=== PATIENT | female | born 1975 | race Caucasian/White ===

== ENCOUNTER 2022-10-27 10:28 | Outpatient (OUT) | payer BC, SELFPAY ==
[2022-10-27 11:45] LABS: Chol HDL Ratio 4.3; Cholesterol 230 mg/dL (<=200); Glucose 116 mg/dL (74-106); HDL Cholesterol 54 mg/dL (40-60); Triglycerides 245 mg/dL (<=150)
== END 2022-10-27 10:29 | disposition home or self-care (01) ==
PROVIDERS: PCP Family Medicine; Visit Provider Family Medicine
DX: Z00.00 Encounter for general adult medical examination without abnormal findings (principal)
CPT/HCPCS: 36415; 80061; 82947

== ENCOUNTER 2023-05-18 14:49 | Outpatient (OUT) | payer BC, SELFPAY ==
[2023-05-18 15:19] LABS: Basophils Absolute Auto 0.1 10^3/uL (0.0-0.1); Basophils Percent Auto 0.6 % (0.2-2.0); Eosinophils Absolute Auto 0.3 10^3/uL (0.0-0.7); Eosinophils Percent Auto 3.2 % (0.9-7.0); Hematocrit 45.4 % (36.0-48.0); Hemoglobin 14.8 g/dL (12.0-16.0); Immature Granulocytes Abs Auto 0.03 10^3/uL (0.00-0.03); Immature Granulocytes Pct Auto 0.3 % (0.0-0.5); Lymphocytes Absolute Auto 3.4 10^3/uL (1.2-3.8); Lymphocytes Percent Auto 31.8 % (20.5-60.0); Mean Corpuscular HGB Conc 32.6 g/dL (29.9-35.2); Mean Corpuscular Hemoglobin 29.3 pg (26.7-34.0); Mean Corpuscular Volume 89.9 fL (81.0-99.0); Mean Platelet Volume 8.8 fL (9.5-13.5); Monocytes Absolute Auto 0.5 10^3/uL (0.3-0.8); Monocytes Percent Auto 4.9 % (1.7-12.0); Neutrophils Absolute Auto 6.4 10^3/uL (1.4-6.5); Neutrophils Percent Auto 59.2 % (43.0-75.0); Platelet Count 319 10^3/uL (150-450); Red Blood Count 5.05 10^6/uL (4.20-5.40); Red Cell Distribution Width 12.8 % (11.0-15.0); White Blood Count 10.7 10^3/uL (4.0-11.0)
[2023-05-18 15:30] LABS: Anion Gap 13.3; BUN Creatinine Ratio 19.5; Carbon Dioxide 25.2 mmol/L (21.0-32.0); Chloride 105 mmol/L (98-107); Estimated GFR (African America >60 (>=60); Estimated GFR (Non-African Ame >60 (>=60); Glucose 97 mg/dL (74-106); Potassium 4.5 mmol/L (3.5-5.1); Sodium 139 mmol/L (136-145)
[2023-05-18 15:46] LABS: Erythrocyte Sedimentation Rate 77 mm/hr (<=20)
== END 2023-05-18 14:50 | disposition home or self-care (01) ==
LOC: LAB 14:50
PROVIDERS: PCP Family Medicine; Visit Provider Family Medicine
DX: R35.0 Frequency of micturition (principal); R10.9 Unspecified abdominal pain; L08.9 Local infection of the skin and subcutaneous tissue, unspecified
CPT/HCPCS: 36415; 80048; 85025; 85652

== ENCOUNTER 2023-05-25 14:57 | Outpatient (OUT) | payer BC, SELFPAY ==
--- NOTE | 2023-05-25 15:00 | CT_ITS ---
[address] [address] Patient Name: BUDDY HURLEY MRN: [id number] date: 1975 Sex: F Assigned Patient Location: CT Current Patient Location: CT Accession/Order Number: [id number] Exam Date: 05/25/2023 15:14 Report Date: 05/25/2023 15:39 At the request of: GIUSEPPE JOEL Procedure: CT abdomen pelvis wo con EXAMINATION: CT abdomen pelvis wo con HISTORY: urinary frequency R35.0, Bilateral Flank Pain R10.9 COMPARISON: No relevant comparison available. TECHNIQUE: Axial, Coronal, and Sagittal images were created without IV contrast. Dose reduction techniques were achieved by using automated exposure control and/or adjustment of mA and/or kV according to patient size and/or use of iterative reconstruction technique. FINDINGS: LUNG BASES: No visible pulmonary or pleural disease. LIVER: Diffuse hypoattenuation the liver consistent with hepatic steatosis BILIARY: No dilatation or calcification. PANCREAS: No lesion, fluid collection, ductal dilatation, or atrophy. SPLEEN: No enlargement or focal lesion. ADRENALS: No mass or enlargement. KIDNEYS: No mass, obstruction, or calcification. BOWEL/MESENTERY: No visible mass, obstruction, or bowel wall thickening. Normal appendix AORTA/VASCULAR: No aneurysm or dissection. RETROPERITONEUM: No mass or adenopathy. LYMPH NODES: No adenopathy. URINARY BLADDER: No visible focal wall thickening, lesion, or calculus. PELVIC ORGANS: Hysterectomy ABDOMINAL WALL: No mass or hernia. BONES: No bony lesion or fracture. OTHER: Negative. CT/CT abdomen pelvis wo con IMPRESSION: No acute intraperitoneal abnormality Diffuse hepatic steatosis No obstructive uropathy Electronically authenticated by: MIGUEL LADD Date: 05/25/2023 15:39
== END 2023-05-25 14:58 | disposition home or self-care (01) ==
LOC: CT 14:57
PROVIDERS: PCP Family Medicine; Visit Provider Family Medicine
DX: R35.0 Frequency of micturition (principal); R10.9 Unspecified abdominal pain; Z87.442 Personal history of urinary calculi
CPT/HCPCS: 74176

== ENCOUNTER 2025-01-12 13:21 | Outpatient (OUT) | payer BC, SELFPAY ==
--- NOTE | 2025-01-12 13:47 | MM_ITS ---
Patient Name: BUDDY HURLEY MR#: [id number] : 1975 Exam Date: 01/12/2025 Ordering Doctor: DR GIUSEPPE JOEL M.D. RADIOLOGY REPORT PROCEDURE: MM TOMOSYNTHESIS SCREENING BI COMPARISON: None. INDICATIONS: Screening Calculator Name NCI Breast Cancer Risk Assessment Tool 5 Year Breast Cancer Risk 0.60% Lifetime Breast Cancer Risk 6.80% Personal Breast Cancer No Personal Ovarian Cancer No Treatments None Family Cancers None LOCATION: [facility] BREAST COMPOSITION: There are scattered areas of fibroglandular density. FINDINGS: RIGHT BREAST: Benign-appearing calcifications are present. There is a 6 mm probably asymmetry of the middle depth of the right breast laterally 5.5 cm from the nipple. There is an 8 mm focal asymmetry in the anterior depth of the right breast 2.1 cm from the nipple. There is a 1.2 cm focal asymmetry in the posterior depth of the right breast medially 9 cm from the nipple. LEFT BREAST: Benign-appearing calcifications are present. There is a 9 mm focal asymmetry in the middle back of the left breast centrally 7 cm from the. There is a 9 mm focal asymmetry junction of the anterior and middle vessel left breast 4 cm from the nipple centrally. DIAGNOSTIC CATEGORY 0--INCOMPLETE: NEED ADDITIONAL IMAGING EVALUATION. RECOMMENDATIONS: ADDITIONAL MAMMOGRAPHIC VIEWS REQUIRED: Bilateral BREAST - spot compressed views of the bilateral breasts with ultrasound if necessary is recommended. Dictated by: Jaskaran Hernandez MD on 01/12/2025 at 17:17 Approved by: Jaskaran Hernandez MD on 01/12/2025 at 17:25
[2025-01-12 14:02] LABS: Hematocrit 43.5 % (36.0-48.0); Hemoglobin 14.7 g/dL (12.0-16.0); Immature Granulocytes Abs Auto 0.03 10^3/uL (0.00-0.03); Immature Granulocytes Pct Auto 0.3 % (0.0-0.5); Lymphocytes Absolute Auto 3.1 10^3/uL (1.2-3.8); Mean Corpuscular HGB Conc 33.8 g/dL (29.9-35.2); Mean Corpuscular Hemoglobin 29.8 pg (26.7-34.0); Mean Corpuscular Volume 88.1 fL (81.0-99.0); Platelet Count 361 10^3/uL (150-450); Red Blood Count 4.94 10^6/uL (4.20-5.40); White Blood Count 8.7 10^3/uL (4.0-11.0)
[2025-01-12 14:25] LABS: Alanine Aminotransferase 40 U/L (14-59); Albumin Globulin Ratio 1.0; Albumin Level 3.8 g/dL (3.4-5.0); Alkaline Phosphatase 82 U/L (46-116); Anion Gap 14.6; Aspartate Amino Transferase 22 U/L (15-37); Blood Urea Nitrogen 8.0 mg/dL (7.0-18.0); Calcium 9.0 mg/dL (8.5-10.1); Carbon Dioxide 27.5 mmol/L (21.0-32.0); Chloride 102 mmol/L (98-107); Estimated GFR (African America >60 (>=60 mL/min/1.73m^2); Estimated GFR (Non-African Ame >60 (>=60 mL/min/1.73m^2); Globulin 3.8 g/dL; Glucose 103 mg/dL (74-106); Potassium 4.1 mmol/L (3.5-5.1); Sodium 140 mmol/L (136-145); Total Protein 7.6 g/dL (6.4-8.2)
[2025-01-12 14:32] LABS: Magnesium 2.0 mg/dL (1.8-2.4); TSH W/ REFLEX FT4 0.899 uIU/mL (0.358-3.740)
[2025-01-12 15:08] LABS: Ferritin 164.0 ng/mL (8.0-252.0)
--- OUTSIDE RECORDS SUMMARY | 2025-01-12 19:23 | XMS_ITS | CCD ---
Author Organization [facility] Care Team Providers Care Radio Repairer Name Role Phone DR NED FAULKNER Admitting Unavailable LUCIE, DR MARINO Attending Unavailable MARYCRUZ, DR TIESHA Tucker Primary Care Unavailable JOEL, DR TIESHA Tucker Admitting Unavailable JOEL, DR TIESHA Tucker Attending Unavailable MARYCRUZ, DR TIESHA Tucker Consulting Unavailable MARYCRUZ, DR TIESHA Tucker Primary Care Unavailable Carl Becker Consulting Unavailable MARYCRUZ, DR TIESHA Tucker Admitting Unavailable MARYCRUZ, DR TIESHA Tucker Attending Unavailable MARYCRUZ, DR TIESHA Tucker Primary Care Unavailable RADHIKA, DR ANTONIO Yusuf Admitting Unavailabl e RADHIKA, DR ANTONIO Yusuf Attending Unavailabl e JOEL, DR TIESHA Tucker Primary Care Unavailable RADHIKA, DR ANTONIO Yusuf Consulting Unavailabl e LAVON, DR TU Queen Consulting Unavailable Tiesha Joel Unavailable Mirtha Doss Unavailable Tiesha Joel Attending Unavailable Tiesha Joel Admitting Unavailable NED FAULKNER Attending Unavailable Tiesha Joel MD Primary Care Provider Tiesha Joel MD Attending Provider Allergies Allergy Classification Reported Allergen(s) Allergy Type Date of Onset Reaction(s) Facility (1 source) Sulfonamides (Antibiotic) Drug allergy (disorder) 11-11-19 17 [facility] Repository (8 sources) Sulfacetamide Drug Allergy 12-28-19 25 nausea and chest pain [facility] (4 sources) Allergies Reconciled Propensity to adverse reactions 09-02-19 18 Unknown [facility] Other (4 sources) Substance with sulfonamide structure and antibacterial mechanism of action (substance) Drug allergy SULFA [facility] Other (1 source) Sulfacetamide Drug Allergy 03-19-20 23 [facility] Repository (3 sources) Sulfonamides (Antibiotic); Translations: [SULFA (SULFONAMIDE ANTIBIOTICS)] Drug allergy (disorder) 09-25-19 [facility] Repository Medications Current Medications Medication Drug Class(es) Dates Sig (Normalized) Sig (Original) Albuterol Sulfate 108 (90 Base) MCG/ACT (7 sources) take 2 puff(s) by inhalation every six hours as needed amoxicillin 875 mg / clavulanate 125 mg oral tablet (1 source) Penicillin-class Antibacterial Start: 04-29-2023 take 1 tablet by mouth every twelve hours Amoxicillin-Pot Clavulanate 875-125 MG 1 tablet Orally every 12 hrs for 7 days Apr, Active carvedilol 6.25 mg oral tablet (8 sources) alpha-Adrenergic Aly, beta-Adrenergic Aly Start: 12-27-2024 take 1 tablet by mouth twice daily at mealtime Carvedilol 6.25 mg tablet Active 6.25 MG PO Twice daily December 27, 2024 12:00am [employer] tablet with food Orally Twice a day; Note: Source Status: Taking; Qty: 180 Tablet; Provider: MACHADO NOT PROVIDED Complies with drug therapy take 1 tablet by yvette th every twelve hours Carvedilol 6.25 MG 1 tablet with food Orally Twice a day for 90 days Active losartan potassium 50 mg oral tablet (1 source) Angiotensin 2 Receptor Aly Start: 12-27-2024 take 1 tablet by mouth once daily Losartan 50 mg tablet Active 50 MG PO Daily December 27, 2024 12:00am Complies with drug therapy methylPREDNISolone 4 mg oral tablet (7 sources) Corticosteroid Start: 03-18-2019 SUMAtriptan 100 mg oral tablet (9 sources) Serotonin-1b and Serotonin-1d Receptor Agonist Start: 06-29-2023 Sumatriptan Succinate 100 mg tablet Active 0 .ROUTE .COMPLEX 9 June 29, 2023 10:07am TAKE 1 TABLET BY MOUTH NEEDED FOR MIGRAINE Complies with drug therapy Start: 06-29-2023 End: 06-29-2023 Sumatriptan Succinate 100 mg tablet Discontinued 100 MG PO June 29, 2023 12:00am June 29, 2023 10:07am SUMAtriptan Succ inate 100 MG TAKE 1 TABLET BY MOUTH NEEDED FOR MIGRAINE for 30 Active SUMAtriptan Succ inate Active Completed/Discontinued Medications Medication Drug Class(es) Dates Sig (Normalized) Sig (Original) 200 actuat albuterol 0.09 mg/actuat dry powder inhaler (1 source) beta2-Adrenergic Agonist Start: 12-27-2024 End: 12-27-2024 take 2 puff(s) by inhalation every six hours as needed cefdinir 300 mg oral capsule (4 sources) Cephalosporin Antibacterial Cefdinir 300 MG as directed Orally bid for 7 days Not-Taking/PRN codeine phosphate 2 mg/ml / guaiFENesin 20 mg/ml oral solution (4 sources) Opioid Agonist Start: 03-18-2019 take 5 mL by mouth every four hours as needed guaiFENesin AC 100-10 MG/5ML 5 ml Orally every 4 hrs as needed, DO NOT DRIVE OR OPERATE HEAVY MACHINERY Mar, Not-Taking/PRN Problems Active Problems Problem Classification Problem Date Documented Date Episodic/Chronic Disorders of lipid metabolism (2 sources) Mixed hyperlipidemia; Translations: [Mixed hyperlipidemia] Onset: 11-28-2024 Chronic Essential hypertension (13 sources) Essential hypertension; Translations: [Essential (primary) hypertension] Onset: 09-24-2022 Chronic Female infertility (4 sources) Female infertility associated with anovulation; Translations: [Female infertility associated with anovulation] Onset: 02-10-2008 Chronic Fever of unknown origin (9 sources) Fever, unspecified; Translations: [Fever] Onset: 08-10-2020 Episodic Gastroduodenal ulcer (except hemorrhage) (4 sources) Peptic ulcer without hemorrhage, without perforation AND without obstruction; Translations: [Peptic ulcer, site unspecified, unspecified as acute or chronic, without hemorrhage or perforation] Onset: 04-13-2016 Chronic Headache; including migraine (11 sources) Refractory migraine; Translations: [Migraine, unspecified, intractable, without status migrainosus] Chronic Menstrual disorders (8 sources) Dysmenorrhea; Translations: [Dysmenorrhea, unspecified] Onset: 02-10-2008 Resolved: 08-03-2017 Chronic Mood disorders (4 sources) Depression; Translations: [Depression, unspecified] Onset: 04-13-2016 Chronic Other connective tissue disease (1 source) Bicipital tendinitis, right shoulder Episodic Other connective tissue disease (1 source) Bicipital tendinitis, left shoulder Episodic Other nutritional; endocrine; and metabolic disorders (4 sources) Obesity; Translations: [Obesity, unspecified] Onset: 04-13-2016 Chronic Other nutritional; endocrine; and metabolic disorders (4 sources) Body mass index 40+ - severely obese; Translations: [Body mass index (BMI) 40.0-44.9, adult] Chronic Other nutritional; endocrine; and metabolic disorders (4 sources) Morbid obesity; Translations: [Morbid (severe) obesity due to excess calories] Chronic Other nutritional; endocrine; and metabolic disorders (2 sources) Body mass index (BMI) 45.0-49.9, adult; Translations: [Body mass index (BMI) 45.0-49.9, adult] Onset: 11-28-2024 Chronic Other screening for suspected conditions (not mental disorders or infectious disease) (6 sources) Urine test negative; Translations: [Encounter for test, result negative] Onset: 09-24-2022 Episodic Other upper respiratory infections (4 sources) Chronic sinusitis; Translations: [Chronic sinusitis, unspecified] Chronic Other upper respiratory infections (2 sources) Acute maxillary sinusitis, unspecified Episodic Otitis media and related conditions (4 sources) Non-suppurative otitis media; Translations: [Unspecified nonsuppurative otitis media, left ear] Episodic Pneumonia (except that caused by tuberculosis or sexually transmitted disease) (5 sources) Pneumonia, unspecified organism; Translations: [Pneumonia] Onset: 08-20-2020 Episodic Pneumonia (except that caused by tuberculosis or sexually transmitted disease) (1 source) Pneumonia (except that caused by tuberculosis or sexually transmitted disease); Translations: [PNEUMONIA D/T CORONAVIRUS DIS 2019] Onset: 08-15-2020 Skin and subcutaneous tissue infections (1 source) Local infection of the skin and subcutaneous tissue, unspecified Episodic Unclassified (1 source) Frequency of micturition; Translations: [Frequency of micturition] Onset: 05-18-2023 Unclassified (1 source) Obesity, class 3; Translations: [Obesity, class 3] Onset: 11-28-2024 Viral infection (1 source) COVID-19; Translations: [COVID-19] Onset: 08-15-2020 Past or Other Problems Problem Classification Problem Date Documented Date Episodic/Chronic Abdominal pain (5 sources) Pelvic and perineal pain; Translations: [Pelvic and perineal pain] Resolved: 09-01-2018 Episodic Benign neoplasm of uterus (4 sources) Intramural leiomyoma of uterus; Translations: [Intramural leiomyoma of uterus] Resolved: 09-01-2017 Episodic Calculus of urinary tract (5 sources) Kidney stone; Translations: [Calculus of kidney] Onset: 04-13-2016 Episodic Contraceptive and procreative management (4 sources) Surveillance of oral contraception done; Translations: [Encounter for surveillance of contraceptive pills] Resolved: 08-03-2017 Episodic Genitourinary symptoms and ill-defined conditions (5 sources) Female genital organ symptoms; Translations: [Unspecified symptom associated with female genital organs] Onset: 02-13-2010 Episodic Headache; including migraine (4 sources) Headache; Translations: [Headache, unspecified] Onset: 04-13-2016 Episodic Other aftercare (4 sources) Surgical follow-up; Translations: [Follow-up examination, following unspecified surgery] Onset: 04-19-2009 Episodic Other aftercare (4 sources) History and physical examination, follow-up; Translations: [Encounter for follow-up examination after completed treatment for conditions other than malignant neoplasm] Resolved: 09-01-2018 Episodic Other female genital disorders (4 sources) Abnormal uterine bleeding; Translations: [Abnormal uterine and vaginal bleeding, unspecified] Resolved: 08-03-2017 Chronic Other female genital disorders (4 sources) Noninflammatory disorder of vulva; Translations: [Other specified noninflammatory disorders of vulva and perineum] Onset: 02-12-2009 Resolved: 11-25-2016 Episodic Other female genital disorders (4 sources) Disorder of female genital system; Translations: [Personal history of other diseases of the female genital tract] Resolved: 09-01-2017 Episodic Other lower respiratory disease (3 sources) Cough; Translations: [COUGH] Onset: 08-13-2020 Episodic Residual codes; unclassified (4 sources) Postprocedural state finding; Translations: [Other specified postprocedural states] Resolved: 09-01-2018 Episodic Unclassified (4 sources) Surveillance of contraception; Translations: [Surveillance of other previously prescribed contraceptive method] Onset: 06-08-2008 Unclassified (4 sources) Contraception care education done; Translations: [General counseling for prescription of oral contraceptives] Onset: 02-12-2009 Unclassified (1 source) Obesity, class 3; Translations: [Obesity, class 3] Onset: 11-28-2024 Results Test Name Value Interpretation Reference Range Facil ity Office Visiton 11-28-2024 Follow-up visit [id number] Kasey Marks 1975 F Date Provider Department Center 11/28/2024 GracielaEMMANUELJAELNED [facility] Family History Problem Relation Age of Onset Heart attack Father Coronary artery disease Paternal Grandmother Coronary artery disease Paternal Grandfather Family Status - Relation Status Age at Mother Alive Father Paternal Grandmother Paternal Grandfather Level of Service:08806 ID OFFICE/OUTPATIENT ESTABLISHED MOD MDM 30 MIN Normal [facility] Urine Cultureon 05-18-2023 Bacteria identified Cx Nom (U) 25,000 colonies/ml mixed bacterial skin contaminants 1 Day Second day read not performed. PERFORMED BY: [place] [address] PATHOLOGIST [employer] DIRECTOR LAUREN ACKERMAN M.D. [facility] [place] [facility] Comment on above: Performed By: #### C UU #### [facility] [address] [place] [address] CBC AUTO DIFFon 08-13-2020 BASO # 0.0 103/ul Normal 0.0-0.1 [facility] Comment on above: Performed By: #### C BC #### [facility] [address] [place] [address] Licha Elsa Basophils/100 WBC (Bld) 0.2 % Normal 0.2-2.0 [facility] Comment on above: Performed By: #### C BC #### [facility] [address] [address] Licha Elsa EO # 0.0 103/ul Normal 0.0-0.7 [facility] Comment on above: Performed By: #### C BC #### [facility] [address] [place] [address] Licha Elsa Eosinophils/100 WBC (Bld) 0.0 % Critically low 0.9-7.0 [facility] Comment on above: Performed By: #### C BC #### [facility] [address] [place], [place] [id number] Licha Elsa Erythrocyte distribution width (RBC) [Ratio] 12.4 % Normal 11.0-15.0 [facility] Comment on above: Performed By: #### C BC #### [facility] [address] [place], [place] [id number] Licha Elsa Hematocrit (Bld) [Volume fraction] 42.2 % Normal 36.0-48.0 [facility] Comment on above: Performed By: #### C BC #### [facility] [address] [place], [place] [id number] Licha Elsa Hemoglobin (Bld) [Mass/Vol] 14.0 g/dL Normal 12.0-16.0 [facility] Comment on above: Performed By: #### C BC #### [facility] [address] [place] [address] Licha Elsa IG # 0.04 10e3/ul Critically high 0.00-0.03 [facility] Comment on above: Performed By: #### C BC #### [facility] [address] [place] [address] Licha Elsa IG % 0.7 % Critically high 0.0-0.5 [facility] Comment on above: Performed By: #### C BC #### [facility] [address] [place], [place] [id number] Licha Elsa LYMPH # 1.8 103/ul Normal 1.2-3.8 [facility] Comment on above: Performed By: #### C BC #### [facility] [address] [place] [address] Licha Elsa Lymphocytes/100 WBC (Bld) 29.0 % Normal 20.5-60.0 [facility] Comment on above: Performed By: #### C BC #### [facility] [address] [place], [place] [id number] Licha Elsa MANUAL DIFF REQ NO Normal [facility] Comment on above: Performed By: #### C BC #### [facility] [address] [place], [place] [id number] Licha Elsa MCH (RBC) [Entitic mass] 29.6 pg Normal 26.7-34.0 [facility] Comment on above: Performed By: #### C BC #### [facility] [address] [place] [address] Licha Hunter MCHC (RBC) [Mass/Vol] 33.2 g/dL Normal 29.9-35.2 [facility] Comment on above: Performed By: #### C BC #### [facility] [address] [place] [address] Licha Hunter MCV (RBC) [Entitic vol] 89.2 fL Normal 81.0-99.0 [facility] Comment on above: Performed By: #### C BC #### [facility] [address] [place] [address] Licha Hunter MONO # 0.3 103/ul Normal 0.3-0.8 [facility] Comment on above: Performed By: #### C BC #### [facility] [address] [place] [address] Licha Hunter Monocytes/100 WBC (Bld) 4.6 % Normal 1.7-12.0 [facility] Comment on above: Performed By: #### C BC #### [facility] [address] [place] [address] Licha Hunter NEUT # 4.0 103/ul Normal 1.4-6.5 [facility] Comment on above: Performed By: #### C BC #### [facility] [address] [place] [address] Licha Hunter Neutrophils/100 WBC (Bld) 65.5 % Normal 43.0-75.0 [facility] Comment on above: Performed By: #### C BC #### [facility] [address] [place], [place] [id number] Lichaverónica Hunter Platelet mean volume (Bld) [Entitic vol] 8.8 fL Critically low 9.5-13.5 [facility] Comment on above: Performed By: #### C BC #### [facility] [address] [place], [place] [id number] Licha Elsa PLT 202 103/ul Normal 150-450 [facility] Comment on above: Performed By: #### C BC #### [facility] [address] [place], [place] [address] Licha Hunter RBC 4.73 106/ul Normal 4.20-5.40 [facility] Comment on above: Performed By: #### C BC #### [facility] [address] [place], [place] [address] Licha Hunter WBC 6.1 103/ul Normal 4.0-11.0 [facility] Comment on above: Performed By: #### C BC #### [facility] [address] [place], [place] [address] Licha Hunter CTA CHEST WO W CONon 021 CTA CHEST WO W CON EXAMINATION: CTA CHEST WO W CON HISTORY: SHORTNESS OF BREATH , right upper lobe pneumonia, fever, congestion COMPARISON: No relevant comparison available. TECHNIQUE: Multi-planar CT images were created with IV contrast. Axial, Coronal, and Sagittal images. Dose reduction techniques were achieved by using automated exposure control and/or adjustment of mA and/or kV according to patient size and/or use of iterative reconstruction technique. 3-D reconstruction was performed on a separate workstation. FINDINGS: VASCULATURE: No pulmonary embolism or abnormal opacity. LUNGS: Dense patchy and confluent opacities scattered throughout the lungs, right greater than left. PLEURA: No mass, effusion, or pneumothorax. BOO: Prominent calcified and noncalcified lymph nodes bilaterally. MEDIASTINUM: Mild lymphadenopathy. CARDIAC: No enlargement, pericardial effusion, or pericardial thickening. AORTA: No aneurysm or dissection. CHEST WALL: No mass or axillary adenopathy. BONES: No bone lesion or fracture. LIMITED ABDOMEN: Fatty infiltration of the liver.. Limited images of the upper abdomen. OTHER: Negative. IMPRESSION: 1. No pulmonary embolism. 2. Moderate multifocal pneumonia. 3. Hilar and mediastinal lymphadenopathy, likely a combination of reactive lymphadenopathy to pneumonia and chronic granulomatous disease. Electronically authenticated by: TU DOLL Date: 2020-08-13 08:38 Normal [facility] PROF CHEM 8 (BAS METB)on Anion gap [Moles/Vol] 13.2 mmol/L Normal [facility] Comment on above: Performed By: #### H STROPN, BMP #### [facility] [address] [address] Licha Elsa Calcium [Mass/Vol] 8.3 mg/dL Critically low 8.4-10.2 [facility] Comment on above: Performed By: #### H STROPN, BMP #### [facility] [address] [place] [address] Licha Elsa Chloride [Moles/Vol] 98 mmol/L Normal 98-107 [facility] Comment on above: Performed By: #### H STROPN, BMP #### [facility] [address] [place] [address] Licha Elsa CO2 [Moles/Vol] 29.0 mmol/L Normal 22.0-30.0 [facility] Comment on above: Performed By: #### H STROPN, BMP #### [facility] [address] [place] [address] Licha Elsa Creatinine [Mass/Vol] 0.87 mg/dL Normal 0.52-1.04 [facility] Comment on above: Performed By: #### H STROPN, BMP #### [facility] [address] [place] [address] Licha Elsa EGFR-AF GREENLANDIC >60 Normal >=60 [facility] Comment on above: Performed By: #### H STROPN, BMP #### [facility] [address] [place] [address] Licha Elsa EGFR-NON AF GREENLANDIC >60 Normal >=60 [facility] Comment on above: Performed By: #### H STROPN, BMP #### [facility] [address] [place] [address] Licha Elsa Glucose [Mass/Vol] 123 mg/dL Critically high 74-106 T [facility] Comment on above: Performed By: #### H STROPN, BMP #### [facility] [address] [place] [address] Licha Elsa Potassium [Moles/Vol] 4.2 mmol/L Normal 3.4-5.0 [facility] Comment on above: Performed By: #### H STROPN, BMP #### [facility] [address] [address] Licha Elsa Sodium [Moles/Vol] 136 mmol/L Critically low 137-145 Th [facility] Comment on above: Performed By: #### H NANCY, BMP #### [facility] [address] [place] [address] Licha Elsa Urea nitrogen [Mass/Vol] 7.0 mg/dL Normal 7.0-17.0 [facility] Comment on above: Performed By: #### H NANCY, BMP #### [facility] [address] [place] [address] Licha Elsa Urea nitrogen/Creatinine [Mass ratio] 8.0 mg/mg Normal [facility] Comment on above: Performed By: #### H NANCY, BMP #### [facility] [address] [place] [address] Licha Elsa TROPONIN, HIGH SENSITIVITYon 08-13-2020 HSTROP 4.6 pg/mL Normal 4.0-35.5 [facility] Comment on above: Result Comment: CUT- OFF POINTS HAVE BEEN ESTABLISHED BASED ON THE FOURTH UNIVERSAL DEFINITIONS OF MYOCARDIAL INFARCTION. THE UPPER REFERENCE LIMIT (URL) OF TROPONIN, DEFINED THE 99TH PERCENTILE OF cTnI DISTRIBUTION IN A REFERENCE POPULATION, HAS BEEN CONFIRMED THE DECISION THRESHOLD FOR [place] DIAGNOSIS. Performed By: #### H NANCY, BMP #### [facility] [address] [place] [address] Licha Elsa CBC AUTO DIFFon 08-10-2020 BASO # 0.0 103/ul Normal 0.0-0.1 [facility] Comment on above: Performed By: #### C BC #### [facility] [address] [place], [place] [id number] Licha Elsa Basophils/100 WBC (Bld) 0.3 % Normal 0.2-2.0 [facility] Comment on above: Performed By: #### C BC #### [facility] [address] [place] [address] Licha Elsa EO # 0.0 103/ul Normal 0.0-0.7 [facility] Comment on above: Performed By: #### C BC #### [facility] [address] [place], [place] [id number] Licha Elsa Eosinophils/100 WBC (Bld) 0.2 % Critically low 0.9-7.0 [facility] Comment on above: Performed By: #### C BC #### [facility] [address] [place], [place] [id number] Licha Esla Erythrocyte distribution width (RBC) [Ratio] 12.6 % Normal 11.0-15.0 [facility] Comment on above: Performed By: #### C BC #### [facility] [address] [place] [address] Licha Elsa Hematocrit (Bld) [Volume fraction] 47.1 % Normal 36.0-48.0 [facility] Comment on above: Performed By: #### C BC #### [facility] [address] [place], [place] [id number] Licha Elsa Hemoglobin (Bld) [Mass/Vol] 15.6 g/dL Normal 12.0-16.0 [facility] Comment on above: Performed By: #### C BC #### [facility] [address] [place] [address] Licha Elsa IG # 0.02 10e3/ul Normal 0.00-0.03 [facility] Comment on above: Performed By: #### C BC #### [facility] [address] [place] [address] Licha Elsa IG % 0.3 % Normal 0.0-0.5 [facility] Comment on above: Performed By: #### C BC #### [facility] [address] [place] [address] Licha Elsa LYMPH # 1.8 103/ul Normal 1.2-3.8 [facility] Comment on above: Performed By: #### C BC #### [facility] [address] [place], [place] [id number] Licha Elsa Lymphocytes/100 WBC (Bld) 30.9 % Normal 20.5-60.0 [facility] Comment on above: Performed By: #### C BC #### [facility] [address] [place], [place] [id number] Licha Elsa MANUAL DIFF REQ NO Normal [facility] Comment on above: Performed By: #### C BC #### [facility] [address] [place], [place] [id number] Lichaverónica Hunter MCH (RBC) [Entitic mass] 29.7 pg Normal 26.7-34.0 [facility] Comment on above: Performed By: #### C BC #### [facility] [address] [place], [place] [id number] Lichaverónica Hunter MCHC (RBC) [Mass/Vol] 33.1 g/dL Normal 29.9-35.2 [facility] Comment on above: Performed By: #### C BC #### [facility] [address] [place] [address] Licha Elsa MCV (RBC) [Entitic vol] 89.5 fL Normal 81.0-99.0 [facility] Comment on above: Performed By: #### C BC #### [facility] [address] [place], [place] [id number] Licha Elsa MONO # 0.4 103/ul Normal 0.3-0.8 [facility] Comment on above: Performed By: #### C BC #### [facility] [address] [place], [place] [id number] Licha Elsa Monocytes/100 WBC (Bld) 6.8 % Normal 1.7-12.0 [facility] Comment on above: Performed By: #### C BC #### [facility] [address] [place] [address] Licha Elsa NEUT # 3.6 103/ul Normal 1.4-6.5 [facility] Comment on above: Performed By: #### C BC #### [facility] [address] [place], [place] [id number] Licha Elsa Neutrophils/100 WBC (Bld) 61.5 % Normal 43.0-75.0 [facility] Comment on above: Performed By: #### C BC #### [facility] [address] [place], [place] [id number] Licha Elsa Platelet mean volume (Bld) [Entitic vol] 9.3 fL Critically low 9.5-13.5 [facility] Comment on above: Performed By: #### C BC #### [facility] [address] [place] [address] Licha Hunter PLT 178 103/ul Normal 150-450 [facility] Comment on above: Performed By: #### C BC #### [facility] [address] [place] [address] Licha Hunter RBC 5.26 106/ul Normal 4.20-5.40 [facility] Comment on above: Performed By: #### C BC #### [facility] [address] [place] [address] Licha Hunter WBC 5.9 103/ul Normal 4.0-11.0 [facility] Comment on above: Performed By: #### C BC #### [facility] [address] [place] [address] Licha Elsa Covid-19 PCR (CVDTBH)on 07-14 Sample Type Test performed using RT-PCR from a nasopharyngeal collected specimen. Normal [facility] Comment on above: Performed By: #### C VDTBH #### [facility] [address] [place] [address] Licha Hunter SARS-CoV-2 (COVID-19) RNA LANDON+probe Ql (Unsp spec) Detected Abnormal NOT DETECTED [facility] Comment on above: Result Comment: This test is not yet approved or cleared by the [place] FDA. When there are no FDA-approved or cleared tests available, and other criteria are met, FDA can make tests available under an emergency access mechanism called an Emergency Use Authorization (EUA). The EUA for this test is supported by the Siler of Health and Human Service's (HHS's) declaration that circumstances exist to justify the emergency use of in vitro diagnostics for the detection and/or diagnosis of the virus that causes COVID-19. This EUA will remain in effect (meaning this test can be used) for the duration of the COVID-19 declaration justifying emergency of IVDs, unless it is terminated or revoked by FDA (after which the test may no longer be used). Performed By: #### C VDTB #### [facility] [address] [place], [place] [id number] Licha Houseen PROF CHEM 8 (BAS METB)on Anion gap [Moles/Vol] 11.7 mmol/L Normal [facility] Comment on above: Performed By: #### B MP #### [facility] [address] [place] [address] Licha Elsa Calcium [Mass/Vol] 8.8 mg/dL Normal 8.4-10.2 [facility] Comment on above: Performed By: #### B MP #### [facility] [address] [place] [address] Licha Elsa Chloride [Moles/Vol] 102 mmol/L Normal 98-107 [facility] Comment on above: Performed By: #### B MP #### [facility] [address] [place] [address] Licha Elsa CO2 [Moles/Vol] 28.1 mmol/L Normal 22.0-30.0 [facility] Comment on above: Performed By: #### B MP #### [facility] [address] [place] [address] Licha Elsa Creatinine [Mass/Vol] 0.97 mg/dL Normal 0.52-1.04 [facility] Comment on above: Performed By: #### B MP #### [facility] [address] [place] [address] Licha Elsa EGFR-AF GREENLANDIC >60 Normal >=60 [facility] Comment on above: Performed By: #### B MP #### [facility] [address] [place], [place] [id number] Licha Elsa EGFR-NON AF GREENLANDIC >60 Normal >=60 [facility] Comment on above: Performed By: #### B MP #### [facility] [address] [place] [address] Licha Elsa Glucose [Mass/Vol] 132 mg/dL Critically high 74-106 [facility] Comment on above: Performed By: #### B MP #### [facility] [address] [place], [place] [address] Licha Elsa Potassium [Moles/Vol] 3.8 mmol/L Normal 3.4-5.0 [facility] Comment on above: Performed By: #### B MP #### [facility] [address] [place], [place] [address] Licha Elsa Sodium [Moles/Vol] 138 mmol/L Normal 137-145 [facility] Comment on above: Performed By: #### B MP #### [facility] [address] [place], [place] [address] Licha Elsa Urea nitrogen [Mass/Vol] 10.0 mg/dL Normal 7.0-17.0 [facility] Comment on above: Performed By: #### B MP #### [facility] [address] [place], [place] [address] Licha Elsa Urea nitrogen/Creatinine [Mass ratio] 10.3 mg/mg Normal [facility] Comment on above: Performed By: #### B MP #### [facility] [address] [place], [place] [address] Licha Elsa XR CHEST 2 Von 08-10-2020 XR CHEST 2 V CHEST X-RAY, TWO VIEWS HISTORY: Fever. COMPARISON: 04/19/2019. FINDINGS: The heart, boo, and mediastinum are unremarkable. There is right upper lobe airspace disease. There are no pleural effusions. There is no pneumothorax. IMPRESSION: Right upper lobe pneumonia. Recommend follow-up to resolution. Electronically authenticated by: CARL BECKER Date: 2020-08-10 19:16 Normal [facility] Vital Signs Date Time Vital Sign Value Performing Clinician Facility 12-27-2024 14:32-040 Body height 154.94 cm Tiesha Joel MD Work Phone: [facility] 12-27-2024 14:320400 Body mass index (BMI) [Ratio] 47 kg/m2 Tiesha Joel MD Work Phone: [facility] 12-27-2024 14:32040 Body weight 112.94 kg Tiesha Joel MD Work Phone: [facility] 12-27-2024 14:32-0400 Diastolic blood pressure 84 mm[Hg] Tiesha Joel MD Work Phone: [facility] 12-27-2024 14:32-0400 Heart rate 94 /min Tiesha Joel MD Work Phone: [facility] 12-27-2024 14:32-0400 Systolic blood pressure 134 mm[Hg] Tiesha Joel MD Work Phone: [facility] 05-18-2023 14:15-0500 Body height 154.94 cm Tiesha Joel Other [facility] Other 05-18-2023 14:15-0500 Body mass index (BMI) [Ratio] 46.93 kg/m2 Tiesha Joel Other [facility] Other 05-18-2023 14:15-0500 Body weight 112.67 kg Tiesha Joel Other [facility] Other 05-18-2023 14:15-0500 Diastolic blood pressure 76 mm[Hg] Tiesha Joel Other [facility] Other 05-18-2023 14:15-0500 Systolic blood pressure 109 mm[Hg] Tiesha Joel Other [facility] Other 10-16-2022 13:00-0400 Body height 154.94 cm Tiesha Joel Other [facility] Other 10-16-2022 13:00-0400 Body mass index (BMI) [Ratio] 46.85 kg/m2 Tiesha Joel Other [facility] Other 10-16-2022 13:00-0400 Body weight 112.49 kg Tiesha Joel Other [facility] Other 10-16-2022 13:00-0400 Diastolic blood pressure 78 mm[Hg] Tiesha Joel Other [facility] Other 10-16-2022 13:00-0400 Systolic blood pressure 128 mm[Hg] Tiesha Joel Other [facility] Other 06-11-2022 11:00-0500 Body height 154.94 cm Tiesha Joel Other [facility] Other 06-11-2022 11:00-0500 Body mass index (BMI) [Ratio] 46.67 kg/m2 Tiesha Joel Other [facility] Other 06-11-2022 11:00-0500 Body temperature 100.4 [degF] Tiesha Joel Other [facility] Other 06-11-2022 11:00-0500 Body weight 112.04 kg Tiesha Joel Other [facility] Other 06-11-2022 11:00-0500 Diastolic blood pressure 92 mm[Hg] Tiesha Joel Other [facility] Other 06-11-2022 11:00-0500 SaO2% (BldA) [Mass fraction] 96 % Tiesha Joel Other [facility] Other 06-11-2022 11:00-0500 Systolic blood pressure 136 mm[Hg] Tiesha Joel Other [facility] Other Encounters Encounter Date Encounter Type Care Provider Facility Start: 12-27-2024 End: 12-27-2024 ambulatory Tiesha Joel MD Work Phone: [facility] Work Phone: Start: 12-27-2024 End: 12-27-2024 Patient encounter procedure Tiesha Joel MD -[facility] Work Phone: Start: 11-28-2024 End: 11-28-2024 ambulatory NED FAULKNER [facility] Start: 05-25-2023 End: 05-25-2023 ambulatory Tiesha Joel Other [facility] Other Start: 05-25-2023 Telephone encounter Tiesha Joel [facility] Start: 05-18-2023 End: 05-18-2023 ambulatory Tiesha Joel Facility:[facility] Start: 05-18-2023 Office outpatient vi sit 15 minutes Tiesha Joel [facility] Start: 04-29-2023 End: 04-29-2023 ambulatory Mirtha Doss Other [facility] Other Start: 04-29-2023 Telephone encounter Mirtha Gregory her [facility] Start: 10-27-2022 End: 10-27-2022 ambulatory Tiesha Joel Other [facility] Other Start: 10-27-2022 Telephone encounter Tiesha Joel [facility] Start: 10-16-2022 End: 10-16-2022 ambulatory Tiesha Joel Other [facility] Other Start: 10-16-2022 Encounter for genera l adult medical examination without abnormal findings Tiesha Joel [facility] Start: 10-16-2022 Periodic preventive med est patient 40-64yrs Tiesha Joel [facility] Start: 06-11-2022 End: 06-11-2022 ambulatory Tiesha Joel Other [facility] Other Start: 06-11-2022 Office outpatient vi sit 15 minutes Tiesha Joel [facility] Start: 06-17-[address] NED FAULKNER Fac ility:[facility] Start: 08-13-2020 End: 08-13-[address] ANTONIO GARRIDO Facility:[facility] Start: 08-10-2020 End: 08-11-[address] TIESHA JOEL Facility:[facility] Start: 08-10-2020 Gynecological examination normal Mirtha Doss Other [facility] Other Start: 08-03-2017 Pre-procedure evalua tion check Mirtha Doss Other [facility] Other Procedures Date Procedure Procedure Detail Performing Clinician Start: 02-10-2008 Contraception care education Mirtha Doss Other Hysterectomy Tiesha Joel Other Hysterectomy Mirtha Beltran [facility] Other Payers Date Payer Category Payer Self-pay 1975 Unknown [id number] [id number] [id number] 1975 Unknown [id number] 2.16.84 [id number] 1977 Unknown [id number] 2.16.84 [id number] 1977 Unknown [id number] 2.16.84 [id number] 1959 Unknown [id number] Unknown [id number] 2. [id number] Unknown [id number] 2.16.8 [id number] Unknown [id number] 2.16.8 [id number] Social History Date Type Detail Facility Unknown if ever smoked [facility] Other Sex Assigned At Sex Assigned At Bir th [facility] Other Tobacco smoking status NHIS Unknown if ever smoked [facility] Work Phone: Sex Female (finding) [facility] Start: 1975 Sex Assigned At Female F [facility] Progress note 11-28-2024 Note Date & Type Note Facility 11-28-2024 Note [place] [facility] - [facility] Subjective Kasey Marks is a 49 y.o. year old female patient being seen for 1 year follow up. Patient denies chest pain, SOB, KIDD. Patient complains of palpitation with lack of sleep, leg swelling, dizziness/lightheaded while walking on treadmill. Patient Active Problem List Diagnosis Electrocardiogram abnormal Essential hypertension Family History Problem Relation Name Age of Onset Heart attack Father Coronary artery disease Paternal Grandmother Coronary artery disease Paternal Grandfather Social History Tobacco Use Smoking status: Former Types: Cigarettes Smokeless tobacco: Never Substance Use Topics Alcohol use: Not Currently Drug use: Never HPI Kasey is seen in follow-up. She is a 49-year-old woman with no prior cardiac history. She has history of hypertension and takes carvedilol 12.5 mg twice daily. She has morbid obesity. She does not have any other significant risk factors for heart disease. In the past when she was younger she had symptoms of sharp chest pain and underwent an echocardiogram and was told that she have possible mitral valve prolapse. Her follow up echocardiogram did not show evidence of mitral valve prolapse. Her prior EKGs apparently have shown evidence of poor R-wave progression and were read as possible anterior myocardial infarction. She has had no symptoms suggestive of myocardial infarction. She has good exercise tolerance and no heart failure symptoms. Her stress test in 2019 showed no ischemia. Today she reports that she has mild shortness of breath on exertion when she goes for long time on the treadmill. She has occasional leg swelling. She feels seldom palpitations. Her blood pressure has been mildly elevated and she reports that her blood pressure gets elevated whenever she gets stressed out. No blood testing in the past year. she continues to take carvedilol 12.5 mg twice daily. Her blood pressure today is significantly elevated. Review of Systems Cardiovascular: Positive for leg swelling (intermittent, resolves by morning) and palpitations (with lack of sleep). Neurological: Positive for dizziness (with exercise) and light-headedness (with exercise). All other systems reviewed and are negative. Objective Visit Vitals BP (!) 148/94 (BP Location: Right arm, Patient Position: Sitting) Pulse 78 Ht 1.549 m (5' 1 ) Wt 113 kg (250 lb) SpO2 98% BMI 47.24 kg/m??? Smoking Status Former BSA 2.21 m??? Physical Exam Constitutional: Appearance: She is well-developed. She is obese. She is not ill-appearing. HENT: Head: Normocephalic and atraumatic. Nose: Nose normal. Eyes: General: No scleral icterus. Pupils: Pupils are equal, round, and reactive to light. Neck: Thyroid: No thyromegaly. Vascular: No JVD. Cardiovascular: Rate and Rhythm: Normal rate and regular rhythm. Pulses: Radial pulses are 2+ on the right side and 2+ on the left side. Heart sounds: Normal heart sounds. No murmur heard. No friction rub. No gallop. Pulmonary: Effort: Pulmonary effort is normal. No respiratory distress. Breath sounds: Normal breath sounds. No wheezing or rales. Chest: Chest wall: No tenderness. Abdominal: General: Bowel sounds are normal. There is no distension. Palpations: Abdomen is soft. Tenderness: There is no abdominal tenderness. Musculoskeletal: General: No swelling. Cervical back: Neck supple. Skin: General: Skin is warm and dry. Neurological: General: No focal deficit present. Mental Status: She is alert and oriented to person, place, and time. Psychiatric: Mood and Affect: Mood normal. Behavior: Behavior is cooperative. Judgment: Judgment normal. Allergies Allergies Allergen Reactions Sulfa (Sulfonamide Antibiotics) Medications Current Outpatient Medications: carvedilol (Coreg) 12.5 mg tablet, TAKE 1 TABLET BY MOUTH TWICE A DAY DIRECTED, Disp: 180 tablet, Rfl: 3 SUMAtriptan (Imitrex) 100 mg tablet, sumatriptan 100 mg tablet TAKE 1 TABLET BY MOUTH NEEDED FOR MIGRAINE, Disp: , Rfl: losartan (Cozaar) 50 mg tablet, Take 1 tablet (50 mg) by mouth in the morning., Disp: 90 tablet, Rfl: 3 Recent Labs Blood testing 08/13/2020: Hemoglobin 14, platelets 202, potassium 4.2, BUN 7, creatinine 0.87. labs 08/13/2020: CBC normal. Renal function normal. High sensitive troponin normal Lipids 10/27/2022: Triglycerides 245, cholesterol 230, LDL 127, HDL 54. Blood testing 05/18/2023: Hemoglobin 14.8, platelets 319, potassium 4.5, BUN 15, creatinine 0.77, EGFR more than 60. Imaging and other tests Stress test 10/31/2019- no ischemia Echocardiogram 09/27/2018: Global left ventricular systolic function is normal (Visually estimated EF 55%). The left ventricle is normal size. Left ventricular wall thickness is normal. No regional wall motion abnormality. Normal diastolic function. Normal right ventricular systolic function. The (more content not included)... [facility] Evaluation note 05-18-2023 Note Date & Type Note Facility 05-18-2023 Evaluation note Encounter Date Diagnosis Assessment Notes May, Urinary frequency (ICD-10 - R35.0) Complete culture, CT ordered to r/o nephrolithia sis, has history of and is est w Dr. Wood. May, Bilateral flank pain (ICD-10 - R10.9) as above May, History of nephrolithiasis (ICD-10 - Z87.442) May, Skin inflammation (ICD-10 - L08.9) as above. [facility] Other Evaluation note 04-29-2023 Note Date & Type Note Facility 04-29-2023 Evaluation note Encounter Date Diagnosis Assessment Notes Apr, Acute non-recurrent maxillary sinusitis (ICD-10 - J01.00) [facility] Other Evaluation note 10-16-2022 Note Date & Type Note Facility 10-16-2022 Evaluation note Encounter Date Diagnosis Assessment Notes Oct, Well adult exam (ICD-10 - Z00.00) We have discussed the necessity of following up with PCP regularly as well as specialists, as needed. Discussed F/U with dentistry and optometry at least yearly. Discussed all preventative measures/ cancer screenings as applicable to this patient. Emphasized the importance of a reduced fat, low carb diet to promote heart health and controlled blood sugars. Reviewed social history and ensured patient is safe within the home today. Pt denies any abuse of alcohol, nicotine, caffeine or recreational drugs. I have ensured patient is of stable mental and physical health today. We have discussed appropriate F/U schedule as well as blood work and vaccinations that apply. All questions answered and patient is sent home pleased, without concerns. Oct, Bicipital tendinitis, right shoulder (ICD-10 - M75.21) order printed for OT. Oct, Bicipital tendinitis, left shoulder (ICD-10 - M75.22) order for OT printed. [facility] Other Evaluation note 06-11-2022 Note Date & Type Note Facility 06-11-2022 Evaluation note Encounter Date Diagnosis Assessment Notes Jun, Acute non-recurrent maxillary sinusitis (ICD-10 - J01.00) History of pneumonia. Requests antibiotic to prevent progression of symptoms. Denies dyspnea. Neg home covid tests. [facility] Other Evaluation note Note Date & Type Note Facility Evaluation note No Information [facility] Other Evaluation note Note Date & Type Note Facility Evaluation note No assessment information availa ble [facility] Work Phone: History general Narrative - Reported Note Date & Type Note Facility History general Narrative - Reported Type Medical History migraines Medical History hx of kidney stones Medical History Essential hypertension Medical History S/P vaginal hysterectomy Medical History Migraine, intractable Surgical History lithotripsy Surgical History kidney stent and removed Surgical History ureters dialted Surgical History partial hysterectomy Hospitalization History see above Hospitalization History migraine Hospitalization History food poisoning [facility] Other Reason for referral (narrative) Note Date & Type Note Facility Reason for referral (narrative) No reason for referral information available [facility] Work Phone: Summary Purpose Family History Relationship Condition Age at Onset Recorded Date/T devante father Unknown Heart disease Unknown Advance Directives Advance Directive Response Recorded Date/ Time Advance Directives No May 19, 2023 9:22am Chief Complaint and Reason for Visit Chief Complaint Admit Date Neck Lump December 27, 2024 2:28pm Additional Source Comments INFORMATION SOURCE (unrecogn ized section and content) DATE CREATED AUTHOR 05/31/2021 [facility] DATE CREATED AUTHOR AUTHOR'S ORGANIZ ATION 05/19/2023 [facility] DATE CREATED AUTHOR AUTHOR'S ORGANIZ ATION 05/26/2023 [facility] DATE CREATED AUTHOR AUTHOR'S ORGANALEXIA ATION 11/29/2024 [facility] REASON FOR VISIT (unrecogniz ed section and content) Sinuses-COVID NegativeWELLNE SSlabsmessageKidney Painurine culture resultCT results Care Teams (unrecognized sec tion and content) Team Status: Active Member Role Status Dates Tiesha Joel MD Primary Care Provider Active Team Status: Inactive Member Role Status Dates Tiesha Joel MD Primary Care Provider Active Start: December 27, 2024 End: December 27, 2024 Tiesha Joel MD Attending Provider Active St art: December 27, 2024 End: December 27, 2024 Goals (unrecognized section and content) Goals may be documented in a n alternate section FOR RECORDS PERTAINING TO PATIENTS WHO ARE OR HAVE BEEN ENROLLED IN A CHEMICAL DEPENDENCY/SUBSTANCEABUSE PROGRAM, SOME INFORMATION MAY BE OMITTED. This clinical summary was aggregated from multiple sources. Caution should be exercised in using it in the provision of clinical care. This summary normalizes information from multiple sources, and as a consequence, information in this document may materially change the coding, format and clinical context of patient data. In addition, data may be omitted in some cases. CLINICAL DECISIONS SHOULD BE BASED ON THE PRIMARY CLINICAL RECORDS. [employer] provides no warranty or guarantee of the accuracy or completeness of information in this document.
[2025-01-13 08:09] LABS: FSH 10.8 mIU/mL (.)
== END 2025-01-12 13:22 | disposition home or self-care (01) ==
LOC: MAMMO 13:23
PROVIDERS: PCP Family Medicine; Visit Provider Family Medicine
DX: Z12.31 Encounter for screening mammogram for malignant neoplasm of breast (principal); R59.0 Localized enlarged lymph nodes; R53.83 Other fatigue; G25.81 Restless legs syndrome; M19.90 Unspecified osteoarthritis, unspecified site; R23.2 Flushing; R92.8 Other abnormal and inconclusive findings on diagnostic imaging of breast; E78.2 Mixed hyperlipidemia; I10 Essential (primary) hypertension
CPT/HCPCS: 36415; 77063; 77067; 80053; 80061; 82672; 82728; 83001; 83735; 84443; 85025; 85652; 86038

== ENCOUNTER 2025-01-12 13:26 | Outpatient (OUT) | payer BC, SELFPAY ==
[2025-01-12 14:24] LABS: Cholesterol 246 mg/dL (<=200); HDL Cholesterol 52 mg/dL (40-60); Triglycerides 213 mg/dL (<=150); VLDL CHOLESTEROL 42.6 mg/dL
--- OUTSIDE RECORDS SUMMARY | 2025-01-12 19:24 | XMS_ITS | CCD ---
Author Organization [facility] Care Team Providers Care Ambulatory Service Representative Name Role Phone DR NED FAULKNER Admitting [...] Unavailable Tiesha Joel MD Primary Care Provider [phone] Tiesha Joel MD Attending Provider [phone] Allergies Allergy Classification Reported Allergen(s) Allergy Type Date of Onset Reaction(s) Facility (1 source) Sulfonamides (Antibiotic) Drug allergy (disorder) 11-11-19 17 [facility] Repository (8 sources) Sulfacetamide Drug Allergy 12-28-19 25 nausea and chest pain [facility] (4 sources) Allergies Reconciled Propensity to adverse reactions 09-02-19 18 Unknown [facility] Other (4 sources) Substance with sulfonamide structure and antibacterial mechanism of action (substance) Drug allergy SULFA [facility] Other (1 source) Sulfacetamide Drug Allergy 03-19-20 23 [facility] Repository (3 sources) Sulfonamides (Antibiotic); Translations: [SULFA (SULFONAMIDE ANTIBIOTICS)] Drug allergy (disorder) [facility] Medications Current Medications Medication Drug [...] Facil ity Office Visiton 11-28-2024 Follow-up visit [id number] Kasey Marks 1975 F Date Provider Department Center 11/28/2024 GracielaEMMANUELJAELNED HICKS CARD [facility] Family History Problem Relation Age of Onset Heart attack Father Coronary artery disease Paternal Grandmother Coronary artery disease Paternal Grandfather Family Status - Relation Status Age at Mother Alive Father Paternal Grandmother Paternal Grandfather Level of Service:10230 ME OFFICE/OUTPATIENT ESTABLISHED MOD MDM 30 MIN Normal [facility] Urine Cultureon 05-18-2023 Bacteria identified Cx Nom (U) 25,000 colonies/ml mixed bacterial skin contaminants 1 Day Second day read not performed. PERFORMED BY: [place] [address] PATHOLOGIST EXECUTIVE CHAIRMAN LAUREN ACKERMAN M.D. [facility] Comment on above: Performed By: #### C UU #### [facility] [address] [place] [address] CBC AUTO DIFFon 08-13-2020 BASO # 0.0 103/ul Normal 0.0-0.1 [facility] Comment on above: Performed By: #### C BC #### [facility] [address] [place] [address] Licha Elsa Basophils/100 WBC (Bld) 0.2 % Normal 0.2-2.0 [facility] Comment on above: Performed By: #### C BC #### [facility] [address] [address] Licha Elsa EO # 0.0 103/ul Normal 0.0-0.7 [facility] Comment on above: Performed By: #### C BC #### [facility] [address] [place] [address] Licha Elsa Eosinophils/100 WBC (Bld) 0.0 % Critically low 0.9-7.0 [facility] Comment on above: Performed By: #### C BC #### [facility] [address] [place], [place] [address] Licha Elsa Erythrocyte distribution width (RBC) [Ratio] 12.4 % Normal 11.0-15.0 [facility] Comment on above: Performed By: #### C BC #### [facility] [address] [place], [place] [address] Licha Elsa Hematocrit (Bld) [Volume fraction] 42.2 % Normal 36.0-48.0 [facility] Comment on above: Performed By: #### C BC #### [facility] [address] [place], [place] [address] Licha Elsa Hemoglobin (Bld) [Mass/Vol] 14.0 g/dL Normal 12.0-16.0 [facility] Comment on above: Performed By: #### C BC #### [facility] [address] [place] [address] Licha Elsa IG # 0.04 10e3/ul Critically high 0.00-0.03 [facility] Comment on above: Performed By: #### C BC #### [facility] [address] [place] [address] Licha Elsa IG % 0.7 % Critically high 0.0-0.5 [facility] Comment on above: Performed By: #### C BC #### [facility] [address] [place], [place] [address] Licha Elsa LYMPH # 1.8 103/ul Normal 1.2-3.8 [facility] Comment on above: Performed By: #### C BC #### [facility] [address] [place] [address] Licha Elsa Lymphocytes/100 WBC (Bld) 29.0 % Normal 20.5-60.0 [facility] Comment on above: Performed By: #### C BC #### [facility] [address] [place], [place] [address] Licha Elsa MANUAL DIFF REQ NO Normal [facility] Comment on above: Performed By: #### C BC #### [facility] [address] [place], [place] [address] Licha Elsa MCH (RBC) [Entitic mass] 29.6 pg Normal 26.7-34.0 [facility] Comment on above: Performed By: #### C BC #### [facility] [address] [place] [address] Licha Hunter MCHC (RBC) [Mass/Vol] 33.2 g/dL Normal 29.9-35.2 [facility] Comment on above: Performed By: #### C BC #### [facility] [address] [place] [address] Licha Hunter MCV (RBC) [Entitic vol] 89.2 fL Normal 81.0-99.0 [facility] Comment on above: Performed By: #### C BC #### [facility] [address] [place] [address] Licha Hunter MONO # 0.3 103/ul Normal 0.3-0.8 [facility] Comment on above: Performed By: #### C BC #### [facility] [address] [place] [address] Licha Hunter Monocytes/100 WBC (Bld) 4.6 % Normal 1.7-12.0 [facility] Comment on above: Performed By: #### C BC #### [facility] [address] [place] [address] Licha Hunter NEUT # 4.0 103/ul Normal 1.4-6.5 [facility] Comment on above: Performed By: #### C BC #### [facility] [address] [place] [address] Licha Hunter Neutrophils/100 WBC (Bld) 65.5 % Normal 43.0-75.0 [facility] Comment on above: Performed By: #### C BC #### [facility] [address] [place], [place] [address] Lichaverónica Hunter Platelet mean volume (Bld) [Entitic vol] 8.8 fL Critically low 9.5-13.5 [facility] Comment on above: Performed By: #### C BC #### [facility] [address] [place], [place] [address] Lciha Elsa PLT 202 103/ul Normal 150-450 [facility] Comment on above: Performed By: #### C BC #### [facility] [address] [place], [place] [address] Licha Hunter RBC 4.73 106/ul Normal 4.20-5.40 [facility] Comment on above: Performed By: #### C BC #### [facility] [address] [place], [place] [address] Licha Hunter WBC 6.1 103/ul Normal 4.0-11.0 [facility] Comment on above: Performed By: #### C BC #### [facility] [address] [place], [place] [address] Licha Hunter CTA CHEST WO W CONon [...] TU DOLL Date: 2020-08-13 08:38 Normal [facility] PROF CHEM 8 (BAS METB)on Anion gap [Moles/Vol] 13.2 mmol/L Normal [facility] Comment on above: Performed By: #### H STROPN, BMP #### [facility] [address] [address] Licha Elsa Calcium [Mass/Vol] 8.3 mg/dL Critically low 8.4-10.2 [facility] Comment on above: Performed By: #### H STROPN, BMP #### [facility] [address] [place] [address] Licha Elsa Chloride [Moles/Vol] 98 mmol/L Normal 98-107 [facility] Comment on above: Performed By: #### H STROPN, BMP #### [facility] [address] [place] [address] Licha Elsa CO2 [Moles/Vol] 29.0 mmol/L Normal 22.0-30.0 [facility] Comment on above: Performed By: #### H STROPN, BMP #### [facility] [address] [place] [address] Licha Elsa Creatinine [Mass/Vol] 0.87 mg/dL Normal 0.52-1.04 [facility] Comment on above: Performed By: #### H STROPN, BMP #### [facility] [address] [place] [address] Licha Elsa EGFR-AF LIBERIAN >60 Normal >=60 [facility] Comment on above: Performed By: #### H STROPN, BMP #### [facility] [address] [place] [address] Licha Elsa EGFR-NON AF LIBERIAN >60 Normal >=60 [facility] Comment on above: Performed By: #### H STROPN, BMP #### [facility] [address] [place] [address] Licha Elsa Glucose [Mass/Vol] 123 mg/dL Critically high 74-[address] [facility] Comment on above: Performed By: #### H STROPN, BMP #### [facility] [address] [place] [address] Licha Elsa Potassium [Moles/Vol] 4.2 mmol/L Normal 3.4-5.0 [facility] Comment on above: Performed By: #### H STROPN, BMP #### [facility] [address] [address] Licha Elsa Sodium [Moles/Vol] 136 mmol/L Critically low 137-145 Th [facility] Comment on above: Performed By: #### H NANCY, BMP #### [facility] [address] [place] [address] Licha Elsa Urea nitrogen [Mass/Vol] 7.0 mg/dL Normal 7.0-17.0 [facility] Comment on above: Performed By: #### H NANCY, BMP #### [facility] [address] [place] [address] Licha Elsa Urea nitrogen/Creatinine [Mass ratio] 8.0 mg/mg Normal [facility] Comment on above: Performed By: #### H NANCY, BMP #### [facility] [address] [place] [address] Licha Elsa TROPONIN, HIGH SENSITIVITYon 08-13-2020 HSTROP 4.6 pg/mL Normal 4.0-35.5 [facility] Comment on above: Result Comment: CUT- OFF POINTS HAVE BEEN ESTABLISHED BASED ON THE FOURTH UNIVERSAL DEFINITIONS OF MYOCARDIAL INFARCTION. THE UPPER REFERENCE LIMIT (URL) OF TROPONIN, DEFINED THE 99TH PERCENTILE OF cTnI DISTRIBUTION IN A REFERENCE POPULATION, HAS BEEN CONFIRMED THE DECISION THRESHOLD FOR [place] DIAGNOSIS. Performed By: #### H NANCY, BMP #### [facility] [address] [place] [address] Licha Elsa CBC AUTO DIFFon 08-10-2020 BASO # 0.0 103/ul Normal 0.0-0.1 [facility] Comment on above: Performed By: #### C BC #### [facility] [address] [place], [place] [address] Licha Elsa Basophils/100 WBC (Bld) 0.3 % Normal 0.2-2.0 [facility] Comment on above: Performed By: #### C BC #### [facility] [address] [place] [address] Licha Elsa EO # 0.0 103/ul Normal 0.0-0.7 [facility] Comment on above: Performed By: #### C BC #### [facility] [address] [place], [place] [address] Licha Elsa Eosinophils/100 WBC (Bld) 0.2 % Critically low 0.9-7.0 [facility] Comment on above: Performed By: #### C BC #### [facility] [address] [place], [place] [address] Licha Elsa Erythrocyte distribution width (RBC) [Ratio] 12.6 % Normal 11.0-15.0 [facility] Comment on above: Performed By: #### C BC #### [facility] [address] [place] [address] Licha Elsa Hematocrit (Bld) [Volume fraction] 47.1 % Normal 36.0-48.0 [facility] Comment on above: Performed By: #### C BC #### [facility] [address] [place], [place] [address] Licha Elsa Hemoglobin (Bld) [Mass/Vol] 15.6 g/dL Normal 12.0-16.0 [facility] Comment on above: Performed By: #### C BC #### [facility] [address] [place] [address] Licha Elsa IG # 0.02 10e3/ul Normal 0.00-0.03 [facility] Comment on above: Performed By: #### C BC #### [facility] [address] [place] [address] Licha Elsa IG % 0.3 % Normal 0.0-0.5 [facility] Comment on above: Performed By: #### C BC #### [facility] [address] [place] [address] Licha Elsa LYMPH # 1.8 103/ul Normal 1.2-3.8 [facility] Comment on above: Performed By: #### C BC #### [facility] [address] [place], [place] [address] Licha Elsa Lymphocytes/100 WBC (Bld) 30.9 % Normal 20.5-60.0 [facility] Comment on above: Performed By: #### C BC #### [facility] [address] [place], [place] [address] Licha Elsa MANUAL DIFF REQ NO Normal [facility] Comment on above: Performed By: #### C BC #### [facility] [address] [place], [place] [address] Lichaverónica Hunter MCH (RBC) [Entitic mass] 29.7 pg Normal 26.7-34.0 [facility] Comment on above: Performed By: #### C BC #### [facility] [address] [place], [place] [address] Lichaverónica Hunter MCHC (RBC) [Mass/Vol] 33.1 g/dL Normal 29.9-35.2 [facility] Comment on above: Performed By: #### C BC #### [facility] [address] [place] [address] Licha Elsa MCV (RBC) [Entitic vol] 89.5 fL Normal 81.0-99.0 [facility] Comment on above: Performed By: #### C BC #### [facility] [address] [place], [place] [address] Licha Elsa MONO # 0.4 103/ul Normal 0.3-0.8 [facility] Comment on above: Performed By: #### C BC #### [facility] [address] [place], [place] [address] Licha Elsa Monocytes/100 WBC (Bld) 6.8 % Normal 1.7-12.0 [facility] Comment on above: Performed By: #### C BC #### [facility] [address] [place] [address] Licha Elsa NEUT # 3.6 103/ul Normal 1.4-6.5 [facility] Comment on above: Performed By: #### C BC #### [facility] [address] [place], [place] [address] Licha Elsa Neutrophils/100 WBC (Bld) 61.5 % Normal 43.0-75.0 [facility] Comment on above: Performed By: #### C BC #### [facility] [address] [place], [place] [address] Licha Elsa Platelet mean volume (Bld) [Entitic vol] 9.3 fL Critically low 9.5-13.5 [facility] Comment on above: Performed By: #### C BC #### [facility] [address] [place] [address] Licha Hunter PLT 178 103/ul Normal 150-450 [facility] Comment on above: Performed By: #### C BC #### [facility] [address] [place] [address] Licha Hunter RBC 5.26 106/ul Normal 4.20-5.40 [facility] Comment on above: Performed By: #### C BC #### [facility] [address] [place] [address] Licha Hunter WBC 5.9 103/ul Normal 4.0-11.0 [facility] Comment on above: Performed By: #### C BC #### [facility] [address] [place] [address] Licha Elsa Covid-19 PCR (CVDTBH)on 07-14 Sample Type Test performed using RT-PCR from a nasopharyngeal collected specimen. Normal [facility] Comment on above: Performed By: #### C VDTBH #### [facility] [address] [place] [address] Licha Hunter SARS-CoV-2 (COVID-19) RNA LANDON+probe Ql (Unsp spec) Detected Abnormal NOT DETECTED [facility] Comment on above: Result Comment: This test is not yet approved or cleared by the [place] FDA. When there are no FDA-approved or cleared tests available, and other criteria are met, FDA can make tests available under an emergency access mechanism called an Emergency Use Authorization (EUA). The EUA for this test is supported by the [place] of Health and Human Service's (HHS's) declaration [...] used). Performed By: #### C VDTB #### [facility] [address] [place], [place] [address] Licha Houseen PROF CHEM 8 (BAS METB)on Anion gap [Moles/Vol] 11.7 mmol/L Normal [facility] Comment on above: Performed By: #### B MP #### [facility] [address] [place] [address] Licha Elsa Calcium [Mass/Vol] 8.8 mg/dL Normal 8.4-10.2 [facility] Comment on above: Performed By: #### B MP #### [facility] [address] [place] [address] Licha Elsa Chloride [Moles/Vol] 102 mmol/L Normal 98-107 [facility] Comment on above: Performed By: #### B MP #### [facility] [address] [place] [address] Licha Elsa CO2 [Moles/Vol] 28.1 mmol/L Normal 22.0-30.0 [facility] Comment on above: Performed By: #### B MP #### [facility] [address] [place] [address] Licha Elsa Creatinine [Mass/Vol] 0.97 mg/dL Normal 0.52-1.04 [facility] Comment on above: Performed By: #### B MP #### [facility] [address] [place] [address] Licha Elsa EGFR-AF LIBERIAN >60 Normal >=60 [facility] Comment on above: Performed By: #### B MP #### [facility] [address] [place], [place] [address] Licha Elsa EGFR-NON AF LIBERIAN >60 Normal >=60 [facility] Comment on above: Performed By: #### B MP #### [facility] [address] [place] [address] Licha Elsa Glucose [Mass/Vol] 132 mg/dL Critically high 74-[address] [facility] Comment on above: Performed By: #### B MP #### [facility] [address] [place], [place] [address] Licha Elsa Potassium [Moles/Vol] 3.8 mmol/L Normal 3.4-5.0 [facility] Comment on above: Performed By: #### B MP #### [facility] [address] [place], [place] [address] Licha Elsa Sodium [Moles/Vol] 138 mmol/L Normal 137-145 [facility] Comment on above: Performed By: #### B MP #### [facility] [address] [place], [place] [address] Licha Elsa Urea nitrogen [Mass/Vol] 10.0 mg/dL Normal 7.0-17.0 [facility] Comment on above: Performed By: #### B MP #### [facility] [address] [place], [place] [address] Licha Elsa Urea nitrogen/Creatinine [Mass ratio] 10.3 mg/mg Normal [facility] Comment on above: Performed By: #### B MP #### [facility] [address] [place], [place] [address] Licha Elsa XR CHEST 2 Von 08-10-2020 XR CHEST 2 V CHEST X-RAY, TWO VIEWS HISTORY: Fever. COMPARISON: 04/19/2019. FINDINGS: The heart, boo, and mediastinum are unremarkable. There is right upper lobe airspace disease. There are no pleural effusions. There is no pneumothorax. IMPRESSION: Right upper lobe pneumonia. Recommend follow-up to resolution. Electronically authenticated by: CARL BECKER Date: 2020-08-10 19:16 Normal [facility] Vital Signs Date Time Vital Sign Value Performing Clinician Facility 12-27-2024 14:32-040 Body height 154.94 cm Tiesha Joel MD Work Phone: [facility] 12-27-2024 14:320400 Body mass index (BMI) [Ratio] 47 kg/m2 Tiesha Joel MD Work Phone: [facility] 12-27-2024 14:32040 Body weight 112.94 kg Tiesha Joel MD Work Phone: [facility] 12-27-2024 14:32-0400 Diastolic blood pressure 84 mm[Hg] Tiesha Joel MD Work Phone: [facility] 12-27-2024 14:32-0400 Heart rate 94 /min Tiesha Joel MD Work Phone: [facility] 12-27-2024 14:32-0400 Systolic blood pressure 134 mm[Hg] Tiesha Joel MD Work Phone: [facility] 05-18-2023 14:15-0500 Body height 154.94 cm Tiesha Joel Other [facility] [employer] Other 05-18-2023 14:15-0500 Body mass index (BMI) [Ratio] 46.93 kg/m2 Tiesha Joel Other [facility] Other 05-18-2023 14:15-0500 Body weight 112.67 kg Tiesha Joel Other [facility] Other 05-18-2023 14:15-0500 Diastolic blood pressure 76 mm[Hg] Tiesha Joel Other [facility] Other 05-18-2023 14:15-0500 Systolic blood pressure 109 mm[Hg] Tiesha Joel Other [facility] Other 10-16-2022 13:00-0400 Body height 154.94 cm Tiesha Joel Other [facility] Other 10-16-2022 13:00-0400 Body mass index (BMI) [Ratio] 46.85 kg/m2 Tiesha Joel Other [facility] Other 10-16-2022 13:00-0400 Body weight 112.49 kg Tiesha Joel Other [facility] Other 10-16-2022 13:00-0400 Diastolic blood pressure 78 mm[Hg] Tiesha Joel Other [facility] Other 10-16-2022 13:00-0400 Systolic blood pressure 128 mm[Hg] Tiesha Joel Other [facility] Other 06-11-2022 11:00-0500 Body height 154.94 cm Tiesha Joel Other [facility] Other 06-11-2022 11:00-0500 Body mass index (BMI) [Ratio] 46.67 kg/m2 Tiesha Joel Other [facility] Other 06-11-2022 11:00-0500 Body temperature 100.4 [degF] Tiesha Joel Other [facility] Other 06-11-2022 11:00-0500 Body weight 112.04 kg Tiesha Joel Other [facility] Other 06-11-2022 11:00-0500 Diastolic blood pressure 92 mm[Hg] Tiesha Joel Other [facility] Other 06-11-2022 11:00-0500 SaO2% (BldA) [Mass fraction] 96 % Tiesha Joel Other [facility] Other 06-11-2022 11:00-0500 Systolic blood pressure 136 mm[Hg] Tiesha Joel Other [facility] Other Encounters Encounter Date Encounter Type Care Provider Facility Start: 12-27-2024 End: 12-27-2024 ambulatory Tiesha Joel MD Work Phone: [facility] Work Phone: Start: 12-27-2024 End: 12-27-2024 Patient encounter procedure Tiesha Joel MD -[facility] Work Phone: Start: 11-28-2024 End: 11-28-2024 ambulatory NED FAULKNER [facility] Start: 05-25-2023 End: 05-25-2023 ambulatory Tiesha Joel Other [facility] Other Start: 05-25-2023 Telephone encounter Tiesha Joel [facility] Start: 05-18-2023 End: 05-18-2023 ambulatory Tiesha Joel Facility:[facility] Start: 05-18-2023 Office outpatient vi sit 15 minutes Tiesha Joel [facility] Start: 04-29-2023 End: 04-29-2023 ambulatory Mirtha Doss Other [facility] Other Start: 04-29-2023 Telephone encounter Mirtha Gregory her [facility] Start: 10-27-2022 End: 10-27-2022 ambulatory Tiesha Joel Other [facility] Other Start: 10-27-2022 Telephone encounter Tiesha Joel [facility] Start: 10-16-2022 End: 10-16-2022 ambulatory Tiesha Joel Other [facility] Other Start: 10-16-2022 Encounter for genera l adult medical examination without abnormal findings Tiesha Joel [facility] Start: 10-16-2022 Periodic preventive med est patient 40-64yrs Tiesha Joel [facility] Start: 06-11-2022 End: 06-11-2022 ambulatory Tiesha Joel Other [facility] Other Start: 06-11-2022 Office outpatient vi sit 15 minutes Tiesha Joel [facility] Start: 06-17-[address] NED FAULKNER Fac ility:[facility] Start: 08-13-2020 End: 08-13-[address] ANTONIO GARRIDO Facility:[facility] Start: 08-10-2020 End: 08-11-[address] TIESHA JOEL Facility:[facility] Start: 08-10-2020 Gynecological examination normal Mirtha Doss Other [facility] Other Start: 08-03-2017 Pre-procedure evalua tion check Mirtha Doss Other [facility] Other Procedures Date Procedure Procedure Detail Performing Clinician Start: 02-10-2008 Contraception care education Mirtha Doss Other Hysterectomy Tiesha Joel Other Hysterectomy Mirtha [facility] Other Payers Date Payer Category Payer Self-pay 1975 Unknown [id number] 2.16.84 [id number] 1975 Unknown [id number] 2.16.84 [id number] 1975 Unknown [id number] 2.16.84 [id number] 1975 Unknown [id number] 2.16.84 [id number] 1957 Unknown [id number] Unknown [id number] 2. [id number] Unknown [id number] 2.16.8 [id number] Unknown [id number] 2.16.8 [id number] Social History Date Type Detail Facility Unknown if ever smoked [facility] Other Sex Assigned At Sex Assigned At Bir th [facility] Other Tobacco smoking status NHIS Unknown if ever smoked [facility] Work Phone: Sex Female (finding) [facility] Start: 1975 Sex Assigned At Female F [facility] Progress note 11-28-2024 Note Date & Type Note Facility 11-28-2024 Note [facility] Subjective Kasey Marks is a 49 [...] systolic function. The (more content not included)... [facility] Evaluation note 05-18-2023 Note Date & [...] Skin inflammation (ICD-10 - L08.9) as above. [facility] Other Evaluation note 04-29-2023 Note Date & Type Note Facility 04-29-2023 Evaluation note Encounter Date Diagnosis Assessment Notes Apr, Acute non-recurrent maxillary sinusitis (ICD-10 - J01.00) [facility] Other Evaluation note 10-16-2022 Note Date & [...] (ICD-10 - M75.22) order for OT printed. [facility] Other Evaluation note 06-11-2022 Note Date & Type Note Facility 06-11-2022 Evaluation note Encounter Date Diagnosis Assessment Notes Jun, Acute non-recurrent maxillary sinusitis (ICD-10 - J01.00) History of pneumonia. Requests antibiotic to prevent progression of symptoms. Denies dyspnea. Neg home covid tests. [facility] Other Evaluation note Note Date & Type Note Facility Evaluation note No Information [employer] Other Evaluation note Note Date & Type Note Facility Evaluation note No assessment information availa ble [facility] Work Phone: History general Narrative - [...] Hospitalization History migraine Hospitalization History food poisoning [employer] Other Reason for referral (narrative) Note Date & Type Note Facility Reason for referral (narrative) No reason for referral information available [facility] Work Phone: Summary Purpose Family History [...] DATE CREATED AUTHOR AUTHOR'S ORGANIZ ATION 05/19/2023 [facility] DATE CREATED AUTHOR AUTHOR'S ORGANIZ ATION 05/26/2023 [facility] DATE CREATED AUTHOR AUTHOR'S ORGANALEXIA ATION 11/29/2024 [facility] REASON FOR VISIT (unrecogniz ed section and [...] BE BASED ON THE PRIMARY CLINICAL RECORDS. [employer] provides no warranty or guarantee of the accuracy or completeness of information in this document.
== END 2025-01-12 13:27 | disposition home or self-care (01) ==
LOC: LAB 13:28
PROVIDERS: PCP Family Medicine; Visit Provider Internal Medicine Interventional Cardiology
DX: E78.2 Mixed hyperlipidemia (principal); I10 Essential (primary) hypertension
CPT/HCPCS: 36415; 80061